=== PATIENT | male | born 2000 | race Two or more races ===

== ENCOUNTER 2023-01-23 12:14 | Outpatient (CLI) | payer OTHER ==
[~2023-01-23 12:14] MED LIST: CYCLOBENZAPRINE10 MG PO; DICLOFENAC POTA50 MG PO
== END 2023-01-23 12:17 | disposition home or self-care (01) ==
LOC: MRI 12:14
PROVIDERS: ATTEND Physical Medicine & Rehabilitation
DX: M60.10 Interstitial myositis of unspecified site (principal); M54.59 Other low back pain
CPT/HCPCS: 72148

== ENCOUNTER 2024-10-25 16:31 | Emergency (ER) | payer OTHER ==
[~2024-10-25] VITALS: Ht 172.7 cm; Wt 68.0 kg
[2024-10-25] MEDS ORDERED: KETOROLAC TROMETHAMINE 30 MG VIAL ONE (17:48)
[2024-10-25] MEDS ORDERED: KETOROLAC TROMETHAMINE 30 MG VIAL IM ONE (18:00)
[2024-10-25 18:12] LABS: HEMOGLOBIN 16.5 g/dL (13-16.00); MEAN CELL VOLUME 88.9 fL (80.0-100.00); MEAN CORPUSCULAR HEMOGLOBIN 31.2 pg (27.00-32.0); MEAN CORPUSCULAR HGB CONC 35.1 g/dl (32.0-36.0); PLATELET COUNT 202 K/uL (150-450); RED BLOOD COUNT 5.29 M/uL (4.00-6.00)
[2024-10-25 18:20] LABS: COVID-19 AG NEGATIVE (NEGATIVE)
[2024-10-25 18:24] LABS: INFLUENZA A AG NEGATIVE (NEGATIVE)
== END 2024-10-25 19:07 | disposition home or self-care (01) ==
LOC: ER 16:31
PROVIDERS: General Practice
DX: B34.9 Viral infection, unspecified (principal); Z20.822 Contact with and (suspected) exposure to COVID-19